=== PATIENT | male | born 1950 | race Caucasian/White ===

== ENCOUNTER 2019-06-12 16:08 | Emergency (ER) | payer BC, MEDICARE, OTHER ==
[2019-06-12] MEDS ORDERED: Aspirin 81 mg CHEW TAB* 81 MG TAB.CHEW PO ONE (16:53)
[2019-06-12] MEDS ORDERED: NS 0.9% 1000 ML** 1,000 ML IV ONE (16:55)
[2019-06-12 17:07] VITALS: BP 161/105
--- NOTE | 2019-06-12 17:25 | UC ---
Respiratory Complaint HPI - HPI Summary HPI Summary: Pt presents with c/o SOB, chest congetion and sinus pressure and pain that began 3 weeks ago. PT states that when he coughs his ribs and chest are painful. Pt denies CP, fever, chills, or any cardiac hx. - History of Current Complaint Chief Complaint: UCGeneralIllness Stated Complaint: COUGH/CHEST CONGESTION Time Seen by Provider: 06/12/19 16:22 Hx Obtained From: Patient Onset/Duration: Sudden Onset, Lasting Weeks, Still Present Timing: Intermittent Episodes Severity Initially: Mild Severity Currently: Mild Pain Intensity: 0 Character: Cough: Nonproductive Aggravating Factors: Deep Breaths Alleviating Factors: Spontaneous Resolution - Risk Factors Pulmonary Embolism Risk Factors: Smoking Cardiac Risk Factors: Smoking Pseudomonas Risk Factors: Negative Tuberculosis Risk Factors: Smoking - Allergies/Home Medications Allergies/Adverse Reactions: Allergies Allergy/AdvReac Type Severity Reaction Status Date / Time Penicillins Allergy Swelling Verified 06/12/19 16:40 Home Medications: Home Medications clonazePAM TAB(*) [KlonoPIN TAB(*)] 0.5 mg PO DAILY 06/12/19 [History Confirmed 06/12/19] PMH/Surg Hx/FS Hx/Imm Hx Previously Healthy: Yes - Surgical History Surgical History: Yes Surgery Procedure, Year, and Place: hernia - Family History Known Family History: Positive: Cardiac Disease - Social History Occupation: Retired Lives: With Family Alcohol Use: Rare Substance Use Type: Excessive Caffeine Smoking Status (MU): Current Every Day Smoker Amount Used/How Often: 10-15 cigs Length of Time of Smoking/Using Tobacco: 30 yr Have You Smoked in the Last Year: Yes Review of Systems All Other Systems Reviewed And Are Negative: Yes Constitutional: Positive: Fatigue Skin: Positive: Negative Eyes: Positive: Negative ENT: Positive: Negative Respiratory: Positive: Shortness Of Breath, Cough Cardiovascular: Positive: Negative Gastrointestinal: Positive: Negative Genitourinary: Positive: Negative Motor: Positive: Negative Neurovascular: Positive: Negative Musculoskeletal: Positive: Negative Neurological: Positive: Negative Psychological: Positive: Negative Is Patient Immunocompromised?: No Physical Exam Triage Information Reviewed: Yes Appearance: Well-Appearing Vital Signs: Initial Vital Signs Temp 98.3 F 06/12/19 16:33 Pulse 138 06/12/19 16:33 Resp 18 06/12/19 16:33 BP 156/105 06/12/19 16:33 Pulse Ox 98 06/12/19 16:33 Vital Signs Reviewed: Yes Eye Exam: Normal ENT Exam: Normal Dental Exam: Normal Neck exam: Normal Respiratory Exam: Normal Respiratory: Positive: Lungs clear Cardiovascular: Positive: Tachycardia, Other: - pulse is regularly irregular Musculoskeletal Exam: Normal Neurological Exam: Normal Psychological Exam: Normal Skin Exam: Normal Respiratory Course/Dx - Course Course Of Treatment: PT's ekg showed afib. PT denies any past cardiac disorders. Pt was sent via ambulance to [facility] for further evaluation and tx. I discussed tranfer with Janis Fletcher NP and she accepted pt for transfer. - Differential Dx/Diagnosis Differential Diagnosis/HQI/PQRI: Other - tachycardia Provider Diagnosis: New onset a-fib, Tachycardia - Physician Notification/Consults Time Discussed With Above Provider: 17:05 Discharge - Sign-Out/Discharge Documenting (check all that apply): Patient Departure All imaging exams completed and their final reports reviewed: No Studies - Discharge Plan Condition: Stable Disposition: TRANS HIGHER LVL OF CARE FAC Patient Education Materials: A-fib (Atrial Fibrillation) (ED) Referrals: Figueroa Davis MD [Primary Care Provider] - - Billing Disposition and Condition Condition: STABLE Disposition: Trans Higher Lvl of Care Fac - Attestation Statements Provider Attestation: Patient not seen by me. I was available for consult
== END 2019-06-12 17:19 | disposition short-term general hospital (02) ==
LOC: UCCORT 16:08
DX: I48.91 Unspecified atrial fibrillation (principal); R00.0 Tachycardia, unspecified; F17.200 Nicotine dependence, unspecified, uncomplicated
CPT/HCPCS: 99203; A9270-GY; G0463